=== PATIENT | female | born 1975 | race Caucasian/White ===

== ENCOUNTER 2023-06-17 00:20 | Emergency (ER) | payer OTHER ==
[2023-06-17 00:33] VITALS: BP 119/78; PULSE 89; RESP 18; TEMP 100.2; BMI 42.0
== END 2023-06-17 01:33 | disposition home or self-care (01) ==
LOC: JER 00:20 → JERFT 00:20
DX: R50.9 Fever, unspecified (principal); R51.9 Headache, unspecified; U07.1 COVID-19
CPT/HCPCS: 0241U-QW; 99283-25

== ENCOUNTER 2024-02-03 13:47 | Emergency (ER) | payer OTHER ==
[2024-02-03 13:59] VITALS: BP 119/80; PULSE 88; RESP 18; TEMP 98.9; BMI 34.8
[2024-02-03] MEDS ORDERED: ACETAMINOPHEN INJECTION 100 ML ONE (15:13)
[2024-02-03] MEDS ORDERED: LIDOCAINE 4% PATCH TP ONE (15:13)
[2024-02-03] MEDS: LIDOCAINE 4% PATCH TP ONE (15:45)
[2024-02-03] MEDS ORDERED: KETOROLAC TROMETHAMINE 30 MG/1 ML VIAL ONE (15:55)
[2024-02-03 15:56] LABS: BASO % 0.4 % (0-2.0); EOS % 0.9 % (0-4.5); HEMATOCRIT 40.8 % (32.4-45.2); HEMOGLOBIN 13.7 GM/dL (10.7-15.3); LYMPH % 21.1 % (8-40); MCH 29.2 pg (25.7-33.7); MCHC 33.5 g/dl (32.0-36.0); MEAN CELL VOLUME 87.2 fl (80-96); MEAN PLT VOLUME 8.7 fl (7.5-11.1); MONO % 7.8 % (3.8-10.2); NEUT % 69.8 % (42.8-82.8); PLATELET COUNT 348 10^3/uL (134-434); RBC 4.68 M/mm3 (3.60-5.2); WHITE BLOOD COUNT 10.9 K/mm3 (4.0-10.0)
[2024-02-03] MEDS: KETOROLAC TROMETHAMINE 30 MG/1 ML VIAL IM ONE (16:03)
[2024-02-03 16:08] LABS: INR 1.04 (0.83-1.09)
[2024-02-03] MEDS: ACETAMINOPHEN 325 MG TABLET (FP) PO ONE (16:08)
[2024-02-03] MEDS: ACETAMINOPHEN 1000 MG/100 ML BAG IVPB ONE (16:09)
[2024-02-03 16:11] LABS: ACTIVATED PTT 32.5 SECONDS (25.2-36.5)
[2024-02-03 16:17] LABS: POTASSIUM 4.8 mmol/L (3.5-5.1)
[2024-02-03 16:19] LABS: BLOOD UREA NITROGEN 21.2 mg/dL (7-18)
[2024-02-03 16:20] LABS: ALBUMIN 3.6 g/dl (3.4-5.0)
[2024-02-03 16:23] LABS: CREATININE 0.6 mg/dL (0.55-1.3)
[2024-02-03 16:25] LABS: BILIRUBIN,TOTAL 0.7 mg/dL (0.2-1); TOT PROT 7.4 g/dl (6.4-8.2)
[2024-02-03] MEDS ORDERED: LIDOCAINE PATCH REMOVAL MC ONE (22:00)
[2024-02-03] MEDS ORDERED: ACETAMINOPHEN 325 MG TABLET (FP) ONE (22:17)
[2024-02-03] MEDS: ACETAMINOPHEN 500 MG TABLET (FP) PO ONE (22:34)
== END 2024-02-03 22:43 | disposition home or self-care (01) ==
LOC: JER 13:47
PROC: 3E033NZ Introduction of Analgesics, Hypnotics, Sedatives into Peripheral Vein, Percutaneous Approach (ICD-10-PCS; principal; 2024-02-03)
PROC: 3E0133Z Introduction of Anti-inflammatory into Subcutaneous Tissue, Percutaneous Approach (ICD-10-PCS; 2024-02-03)
DX: R09.1 Pleurisy (principal)
CPT/HCPCS: 36415; 71046-TC-FY; 71275-TC; 80053; 84484; 84703; 85025; 85379; 85610; 85730; 86850; 86900; 86901; 93005; 93010; 99285-25; J0131; Q9967